=== PATIENT | male | born 1985 | race American Indian/Alaskan Native ===

== ENCOUNTER 2017-06-13 13:08 | Emergency (ER) | payer OTHER ==
[2017-06-13 14:31] VITALS: BP 150/85
[2017-06-13] MEDS ORDERED: DECADRON IM ONE (17:01)
--- NOTE | 2017-06-13 17:02 | Emergency Department Report ---
Minor Respiratory - HPI Chief Complaint: Upper Respiratory Infection Stated Complaint: FLU SX Time Seen by Provider: 06/13/17 16:54 Duration: 3 Days Pain Location: Facial, Throat, Chest Severity: mild Minor Respiratory: Yes Sore Throat, Yes Able to Tolerate Fluids, Yes Cough, Yes Sick Contacts, No Rhinorrhea, No Ear Pain, No Hemoptysis, No Chest Pain, No Shortness of Breath, No Fever Other History: She presents to the emergency room with a 3 day history of body aches and fever. He states they are calling a work that had the flu. Flu's on screening was negative. Patient goes on to state that the symptoms began as left sided facial pain over the maxillary and frontal sinus. He does have erythema with postnasal drip ED Review of Systems ROS: Stated complaint: FLU SX Other details as noted in HPI Comment: All other systems reviewed and negative Constitutional: no symptoms reported, see HPI Eyes: as per HPI ENT: as per HPI, throat pain, congestion (sinus) Respiratory: see HPI Cardiovascular: as per HPI Endocrine: no symptoms reported Gastrointestinal: as per HPI Genitourinary: as per HPI Musculoskeletal: as per HPI Skin: as per HPI Neurological: as per HPI Psychiatric: as per HPI Hematological/Lymphatic: as per HPI ED Past Medical Hx - Past Medical History Previous Medical History?: Yes Hx Asthma: Yes - Surgical History Past Surgical History?: No - Social History Smoking Status: Never Smoker Substance Use Type: Alcohol, Non Opiate Pain, Other - Medications Home Medications: Home Medications Medication Instructions Recorded Confirmed Last Taken Type Amoxicillin 500 mg PO BID #20 capsule 06/13/17 Unknown Rx Fluticasone [Flonase] 1 spray NS QDAY #1 bottle 06/13/17 Unknown Rx predniSONE [Deltasone] 20 mg PO DAILY #5 tablet 06/13/17 Unknown Rx Minor Respiratory Exam - Exam General: Vital signs noted. No distress. Alert and acting appropriately. HEENT: Yes Pharyngeal Erythema, Yes Moist Mucous Membranes, Yes Frontal Tenderness, Yes Maxillary Tenderness, No Pharyngeal Exudates, No Rhinorrhea, No Conjuctival Injection Ear: Both TM Erythema, Neither TM Bulge, Neither EAC Pain, Neither EAC Discharge Neck: Yes Supple, No Adenopathy Lungs: Yes Good Air Exchange, No Wheezes, No Ronchi, No Stridor, No Cough, No Labored Respirations, No Retractions, No Use of Accessory Muscles, No Other Abnormal Lung Sounds Heart: Yes Regular, No Murmur Abdomen: Yes Normal Bowel Sounds, No Tenderness, No Peritoneal Signs Skin: No Rash, No Edema Neurologic: Alert and oriented, no deficits. Musculoskeletal: Unremarkable. ED Course Vital Signs 06/13/17 14:28 Temperature 99.3 F Pulse Rate 109 H Respiratory 20 Rate Blood Pressure 150/85 O2 Sat by Pulse 98 Oximetry - Reevaluation(s) Reevaluation #1: 06/13/17 17:11 Patient presents to the ER today with a three-day history of body aches and fever. This is a subjective fever he did not take his temperature. He's concerned because of calling the patient has had the flu. Patient is nontoxic and non-ill appearing does not appear to have flu as per trends in fast track with other patients that you have positive confirmed influenza. His signs and symptoms are more consistent with upper respiratory tract infection including sinusitis. Patient states that his symptoms began with left-sided facial pain over the frontal and maxillary sinus. His throat is red with postnasal drip. His lungs are clear to auscultation. He is satting 100% on room air. He is ambulatory and taking by mouth fluids. HR 90 on exam ED Medical Decision Making - Medical Decision Making see note flu neg - Differential Diagnosis urti v influenza Critical care attestation.: If time is entered above; I have spent that time in minutes in the direct care of this critically ill patient, excluding procedure time. ED Disposition Clinical Impression: Upper respiratory infection, Sinusitis, Asthma with acute exacerbation Disposition: [id number] TO HOME OR SELFCARE Is pt being admited?: No Does the pt Need Aspirin: No Condition: Stable Instructions: Sinusitis (ED), Upper Respiratory Infection (ED) Additional Instructions: Medications as ordered today. Motrin and Tylenol for mild pain and body pains or for fever. Follow-up with primary care physician in 48 hours for recheck. flu was negative today but she been in the ER today all day being exposed to additional influenza. Hydrate well with water [id number] sinus symptom relief for cough with medication such as Delsym. Return to the emergency room for fever greater than 100.5 orally that does not come down with Tylenol or Motrin. Also return to the ER for chest pain or shortness of breath. C referral below for primary care physician Prescriptions: Amoxicillin 500 mg PO BID #20 capsule Fluticasone [Flonase] 1 spray NS QDAY #1 bottle predniSONE [Deltasone] 20 mg PO DAILY #5 tablet Referrals: PRIMARY CARE, [Primary Care Provider] - 3-5 Days THEODORE GUY MD [Staff Physician] - 3-5 Days Time of Disposition: 17:12
== END 2017-06-13 17:29 | disposition home or self-care (01) ==
LOC: ED 13:08
DX: J06.9 Acute upper respiratory infection, unspecified (principal); J32.9 Chronic sinusitis, unspecified; J45.901 Unspecified asthma with (acute) exacerbation
CPT/HCPCS: 87400; 96372; 99282; J1100

== ENCOUNTER 2017-07-11 19:12 | Emergency (ER) | payer OTHER ==
[2017-07-11 19:59] VITALS: BP 153/90
--- NOTE | 2017-07-11 23:02 | Emergency Department Report ---
ED ENT HPI - General Chief complaint: Sore Throat Stated complaint: SWOLLEN TONSILS Time Seen by Provider: 07/11/17 22:28 Source: patient Mode of arrival: Ambulatory Limitations: No Limitations - History of Present Illness Initial comments: This is a 32 y.o. male that presents with sore throat and swollen tonsils for 1 week. He is not taking anything to control symptoms. He was taking antibiotics for sinus infection 3 weeks ago. Reports pain 5/10 on pain scale and worse while swallowing. He is having difficulty swallowing at times. Denies recent travel or food allergy. Denies drooling, fever, SOB, cough, or chest pain. MD complaint: sore throat, difficulty swallowing -: week(s) (1) Location: throat (sore throat) Severity: moderate Severity scale (0 -10): 5 Quality: aching Consistency: intermittent Improves with: none Worsens with: swallowing Context- Ear: recent illness (3 weeks ago URI/sinusitis) Associated Symptoms: fever, cough, pain with swallowing, sore throat - Related Data Previous Rx's Medication Instructions Recorded Last Taken Type Amoxicillin 500 mg PO BID #20 capsule 06/13/17 Unknown Rx Fluticasone [Flonase] 1 spray NS QDAY #1 bottle 06/13/17 Unknown Rx predniSONE [Deltasone] 20 mg PO DAILY #5 tablet 06/13/17 Unknown Rx Prednisone [predniSONE 5 mg (6-Day 5 mg PO .TAPER #1 tab.ds.pk 07/11/17 Unknown Rx Pack, 21 Tabs)] Allergies Allergy/AdvReac Type Severity Reaction Status Date / Time No Known Allergies Allergy Unverified 06/13/17 14:28 ED Dental HPI - General Chief complaint: Sore Throat Stated complaint: SWOLLEN TONSILS Time Seen by Provider: 07/11/17 22:28 Source: patient Mode of arrival: Ambulatory Limitations: No Limitations - Related Data Previous Rx's Medication Instructions Recorded Last Taken Type Amoxicillin 500 mg PO BID #20 capsule 06/13/17 Unknown Rx Fluticasone [Flonase] 1 spray NS QDAY #1 bottle 06/13/17 Unknown Rx predniSONE [Deltasone] 20 mg PO DAILY #5 tablet 06/13/17 Unknown Rx Prednisone [predniSONE 5 mg (6-Day 5 mg PO .TAPER #1 tab.ds.pk 07/11/17 Unknown Rx Pack, 21 Tabs)] Allergies Allergy/AdvReac Type Severity Reaction Status Date / Time No Known Allergies Allergy Unverified 06/13/17 14:28 ED Review of Systems ROS: Stated complaint: SWOLLEN TONSILS Other details as noted in HPI Constitutional: denies: chills, fever ENT: throat pain, congestion. denies: ear pain, dental pain, hearing loss, epistaxis Respiratory: denies: cough, shortness of breath, wheezing Cardiovascular: denies: chest pain, palpitations Gastrointestinal: denies: abdominal pain, nausea, diarrhea Neurological: denies: headache, weakness, paresthesias ED Past Medical Hx - Past Medical History Hx Asthma: Yes - Social History Smoking Status: Never Smoker Substance Use Type: None - Medications Home Medications: Home Medications Medication Instructions Recorded Confirmed Last Taken Type Amoxicillin 500 mg PO BID #20 capsule 06/13/17 Unknown Rx Fluticasone [Flonase] 1 spray NS QDAY #1 bottle 06/13/17 Unknown Rx predniSONE [Deltasone] 20 mg PO DAILY #5 tablet 06/13/17 Unknown Rx Prednisone [predniSONE 5 mg (6-Day 5 mg PO .TAPER #1 tab.ds.pk 07/11/17 Unknown Rx Pack, 21 Tabs)] ED Physical Exam - General Limitations: No Limitations - ENT ENT exam: Present: mucous membranes moist, TM's normal bilaterally. Absent: normal orophraynx (erythematous orophraynx, swollen red tonsils, no exudate, uvula midline), mucous membranes dry - Neck Neck exam: Present: normal inspection, full ROM. Absent: tenderness, lymphadenopathy - Respiratory Respiratory exam: Present: normal lung sounds bilaterally. Absent: respiratory distress - Cardiovascular Cardiovascular Exam: Present: regular rate, normal rhythm. Absent: systolic murmur, diastolic murmur, rubs, gallop - GI/Abdominal GI/Abdominal exam: Present: soft, normal bowel sounds - Neurological Exam Neurological exam: Present: alert, oriented X3 ED Course Vital Signs 07/11/17 19:56 Temperature 98.2 F Pulse Rate 76 Respiratory 18 Rate Blood Pressure 153/90 O2 Sat by Pulse 100 Oximetry ED Medical Decision Making - Medical Decision Making This is a 32 y.o. male that presents with sore throat and swollen tonsils for 1 week. He was taking amoxicillin 3 weeks ago for URI/sinusitis. He is not taking anything at this time. Tolerating fluids and appetite. Intermittent difficulty swallowing. Denies recent travel or food allergy. Given dexamethasone 8 mg IM once in ER. Patient tolerating oral fluids in ER. Obtained rapid strep, negative. Treat outpatient with prednisone taper. Discussed plan of care with patient and agreed with plan. Discharged home in stable condition. F/U with ENT in 2-3 days. Critical care attestation.: If time is entered above; I have spent that time in minutes in the direct care of this critically ill patient, excluding procedure time. ED Disposition Clinical Impression: Sore throat Acute pharyngitis Qualifiers: Pharyngitis/tonsillitis etiology: unspecified etiology Qualified Code(s): J02.9 - Acute pharyngitis, unspecified Disposition: TO HOME OR SELFCARE Is pt being admited?: No Does the pt Need Aspirin: No Condition: Stable Instructions: Pharyngitis (ED) Additional Instructions: Wash hands frequently. Take tylenol or ibuprofen every 4-6 hours for relief of symptoms. Follow up with ENT in 2-3 days if symptoms are not improving. Prescriptions: Prednisone [predniSONE 5 mg (6-Day Pack, 21 Tabs)] 5 mg PO .TAPER #1 tab.ds.pk Referrals: JAYME WORTHY MD [Staff Physician] - 3-5 Days BLANCA CARCAMO MD [Staff Physician] - 3-5 Days Time of Disposition: 23:25 Print Language: [place]
[2017-07-11] MEDS ORDERED: DECADRON IM ONE (23:09)
== END 2017-07-11 23:37 | disposition home or self-care (01) ==
LOC: ED 19:12
DX: J02.9 Acute pharyngitis, unspecified (principal); J45.909 Unspecified asthma, uncomplicated
CPT/HCPCS: 87116; 87430; 96372; 99283; J1100